=== PATIENT | male | born 1980 | race Caucasian/White ===

== ENCOUNTER 2020-11-30 18:16 | Emergency (ER) | payer OTHER ==
[~2020-11-30] VITALS: Ht 172.7 cm; Wt 104.2 kg
[2020-11-30 18:25] VITALS: BP 135/77
[2020-11-30] MEDS ORDERED: CEPHALEXIN 250 MG CAPSULE PO ONE (18:30)
[2020-11-30] MEDS ORDERED: CEPH500T PO (18:33)
--- NOTE | 2020-11-30 18:36 | PHYS DOC ---
General Adult EDM: Chief Complaint: INSECT BITE HPI: HPI: Patient is a 40-year-old male being seen in the ER for redness, warmth, swelling, and pain surrounding spider bite to his right forearm that he noticed 2 days ago. Patient reports that the site is also itching. He rates his pain 5 out of 10. No treatment prior to arrival. Patient is denying fevers, difficulty swallowing, shortness of breath. (NOA MIMS APRN) Review of Systems: Review of Systems: 14 body systems of the review of systems have been reviewed. See HPI for pertinent positive and negative responses, otherwise all other systems are negative, nonpertinent or noncontributory (NOA MIMS APRN) Allergies: Allergies: Allergies Coded Allergies Type Severity Reaction Last Updated Verified No Known Drug Allergies 11/30/20 No (NOA MIMS APRN) Physical Exam: PE: Constitutional: Well developed, well nourished, no acute distress, non-toxic appearance. [] HENT: Normocephalic, atraumatic Eyes: PERRLA, EOMI, conjunctiva normal, no discharge. [] Neck: Normal range of motion, no stridor Cardiovascular: Normal peripheral perfusion Lungs & Thorax: Normal work of breathing, no tachypnea Abdomen: Bowel sounds normal, soft, no tenderness, no masses, no pulsatile masses. [] Skin: Warm, dry, no rash, 2 cm area of redness/swelling noted to right forearm with warmth and a puncture geraldine in the center of wound. No drainage noted. Patient has full range of motion of the right upper extremity and neuro intact. Back: Normal range of motion Extremities: No tenderness, no cyanosis, no clubbing, ROM intact, no edema. [] Neurologic: Alert and oriented X 3, normal motor function, normal sensory function, no focal deficits noted. [] Psychologic: Affect normal, judgement normal, mood normal. [] (NOA MIMS APRN) EKG: EKG: [] (NOA MIMS APRN) Radiology/Procedures: Radiology/Procedures: [] (NOA MIMS APRN) Heart Score: C/O Chest Pain: No Risk Factors: Risk Factors: DM, Current or recent (<one month) smoker, HTN, HLP, family history of CAD, obesity. Risk Scores: Score 0 - 3: 2.5% MACE over next 6 weeks - Discharge Home Score 4 - 6: 20.3% MACE over next 6 weeks - Admit for Clinical Observation Score 7 - 10: 72.7% MACE over next 6 weeks - Early Invasive Strategies (NOA MIMS APRN) Course & Med Decision Making: Course & Med Decision Making Pertinent Labs and Imaging studies reviewed. (See chart for details) Patient is a 40-year-old male being seen for redness, warmth, swelling surrounding the spider bite to his right forearm that started 2 days ago. Patient was given first dose of antibiotic in the ER and discharged home with a prescription. Patient advised to take Tylenol/ibuprofen for pain. He was also advised to take Benadryl for itching as needed. Patient advised to follow-up with his primary care provider. I discussed with patient all findings and diagnostic testing as well as the need to follow-up with PCP for further evaluation and treatment or return to the ER if any new or worsening symptoms. Strict return precautions were also discussed at length. Patient voiced under standing and agreement with the plan. Patient is hemodynamically stable at the time of disposition. (NOA MIMS APRN) Course & Med Decision Making Did not see or evaluate patient. Agree with PATRON ATTENDANT's work-up and disposition per note. (NICO PLUMMER MD) Dragon Disclaimer: Keesha Disclaimer: This electronic medical record was generated, in whole or in part, using a voice recognition dictation system. (NOA MIMS APRN) Departure Departure: Impression: Primary Impression: Insect bite Qualified Codes: S50.861A - Insect bite (nonvenomous) of right forearm, initial encounter; W57.XXXA - Bitten or stung by nonvenomous insect and other nonvenomous arthropods, initial encounter Additional Impression: Cellulitis Qualified Codes: L03.113 - Cellulitis of right upper limb Disposition: HOME / SELF CARE / HOMELESS Condition: GOOD Referrals: JING TY (PCP) Patient Instructions: Cellulitis, Insect Bite Additional Instructions: You were seen in the ER for skin infection following an insect bite. You were given your first dose of antibiotic in the ER and discharged home with a prescription. Make sure you start and finish that antibiotic completely. He can take Tylenol/ibuprofen for pain at home. For itching you can take Benadryl as needed. Please follow-up with your primary care provider tomorrow regarding your ER visit. If you develop difficulty swallowing, shortness of breath, high fevers refractory to treatment or worsening of the redness/swelling of your forearm please return to the ER immediately. EMERGENCY DEPARTMENT GENERAL DISCHARGE INSTRUCTIONS Thank you for coming to [facility] (ED) today and trusting us with you care. We trust that you had a positivie experience in our Emergency Department. If you wish to speak to the department management, you may call the director at [phone]. YOUR FOLLOW UP INSTRUCTIONS ARE FOLLOWS: 1. Do you have a private Doctor? If you do not have a private doctor, please ask for a resource list of physicians or clinics that may be able to assist you with follow up care. 2. The Emergency Physician has interpreted your x-rays. The X-Ray specialist will also review them. If there is a change in the findings, you will be notified in 48 hours when at all possible. 3. A lab test or culture has been done, your results will be reviewed and you will be notified if you need a change in treatment. ADDITIONAL INSTRUCTIONS AND INFORMATION: 1. Your care today has been supervised by a physician who is specially trained in emergency care. Many problems require more than one evaluation for a complete diagnosis and treatment. We recommend that you schedule your follow up appointment as recommended to ensure complete treatment of you illness or injury. If you are unable to obtain follow up care and continue to have a problem, or if your condition worsens, we recommend that you return to the ED. 2. We are not able to safely determine your condition over the phone nor are we able to give sound medical advice over the phone. For these safety reasons, if you call for medical advice we will ask you to come to the ED for further evaluation. 3. If you have any questions regarding these discharge instructions please call the ED at [phone]. SAFETY INFORMATION: In the interest of safety, wellness, and injury prevention; we encourage you to wear your sealbelt, if you smoke; quite smoking, and we encourage family to use a protective helmet for bicycling and other sporting events that present an increased risk for head injury. IF YOUR SYMPTOMS WORSEN OR NEW SYMPTOMS DEVELOP, OR YOU HAVE CONCERNS ABOUT YOUR CONDITION; OR IF YOUR CONDITION WORSENS WHILE YOU ARE WAITING FOR YOUR FOLLOW UP APPOINTMENT; EITHER CONTACT YOUR PRIMARY CARE DOCTOR, THE PHYSICIAN WHOSE NAME AND NUMBER YOU WERE GIVEN, OR RETURN TO THE ED IMMEDIATELY. Scripts Cephalexin (CEPHALEXIN) 500 Mg Tablet 1 TAB PO QID for cellulitis for 7 Days, #28 TAB 0 Refills Prov: NOA MIMS APRN 11/30/20 NOA MIMS APRN Nov 30, 2020 18:36 NICO PLUMMER MD Nov 30, 2020 19:02
== END 2020-11-30 18:41 | disposition home or self-care (01) ==
LOC: ER 18:16
DX: S50.861A Insect bite (nonvenomous) of right forearm, initial encounter (principal); L03.113 Cellulitis of right upper limb; W57.XXXA Bitten or stung by nonvenomous insect and other nonvenomous arthropods, initial encounter; Y93.89 Activity, other specified; Y92.89 Other specified places as the place of occurrence of the external cause; Y99.8 Other external cause status
CPT/HCPCS: 99283